=== PATIENT | female | born 1995 | race African-American/Black ===

== ENCOUNTER 2020-05-15 17:57 | Emergency (ER) | payer MEDICARE, MEDICAID ==
[~2020-05-15] VITALS: Ht 170.2 cm; Wt 108.9 kg
[~2020-05-15 17:57] MED LIST: ACETAMINOPHEN-1 EAC1 PO; ATIVAN1 MG PO; AUGMENTIN250 MG/55 PO; AZITHROMYC200 MG/52 PO; BENZTROPINE ME0.5 MG PO; BIRTH CONTROL; BLEPH-105 ML OPHTHALMIC; CHLORPROMAZINE25 M1 PO; CLARITIN10 MG PO; COUGH CONT100 MG/5 M PO; DEPAKOTE 250MG250 M1 PO; DOXYCYCLINE 10100 M1 PO; GEODON20 MG PO; LIDOCAINE VISC100 M1 PO; LUNESTA1 MG PO; LUNESTA3 MG PO; MEDROLDOSEPACK PO; MELATONIN3 MG PO; MYRBETRIQ25 MG PO; NASONEX17 GM NASAL; OLANZAPINE5 MG; PAXIL10 MG PO; PREDNISONE 20 M20 MG PO; PREDNISONE50 MG PO; PRELONE15 MG/5 ML PO; PROAIR HFA8.5 GM INH; SEROQUEL 50 MG50 MG PO; TENEX1 MG; TRILEPTAL600 MG PO; VENTOLIN HFA 1818 GM INH; ZPAK PO; ZYPREXA ZYDIS5 MG PO; ZYRTEC10 M5 PO; ZYRTEC10 MG PO
[2020-05-15 18:40] VITALS: BP 141/65
== END 2020-05-15 18:40 | disposition home or self-care (01) ==
LOC: M.ERS 17:57
DX: S01.81XA Laceration without foreign body of other part of head, initial encounter (principal); F90.9 Attention-deficit hyperactivity disorder, unspecified type; F84.0 Autistic disorder; Z79.899 Other long term (current) drug therapy; W22.8XXA Striking against or struck by other objects, initial encounter; Y93.89 Activity, other specified; Y92.89 Other specified places as the place of occurrence of the external cause; Y99.8 Other external cause status

== ENCOUNTER 2020-10-10 12:26 | Emergency (ER) | payer MEDICARE, MEDICAID ==
[~2020-10-10] VITALS: Ht 165.1 cm; Wt 95.3 kg
[2020-10-10 14:01] VITALS: BP 122/89
== END 2020-10-10 14:02 | disposition home or self-care (01) ==
LOC: M.ERS 12:26
DX: B34.9 Viral infection, unspecified (principal); Z20.822 Contact with and (suspected) exposure to COVID-19